=== PATIENT | female | born 1985 | race Caucasian/White ===

== ENCOUNTER 2018-05-14 16:58 | Observation (INO) | payer OTHER ==
[2018-05-14] MEDS ORDERED: Sodium Chloride 0.9% 1000 ML 1,000 ML IV STA (17:52)
--- NOTE | 2018-05-14 18:00 | ERPHSYRPT ---
- History of Present Illness Time Seen by Provider: 05/14/18 17:45 Source: patient Exam Limitations: clinical condition Patient Subjective Stated Complaint: pt reports vomiting every other day, states recently been treated for UTI, pt is , pt also reports acid reflux and abd cramping, Triage Nursing Assessment: pt is aox3, pupils perrl, afebrile, resps easy and non labored, radial pulses strong and equal, lung sounds are clear, abd is , bowel sounds present and normoactive x4, pt skin pale warm dry. Physician History: PATIENT IS A 5, PARA 3, 1, WHO IS 28 WEEKS GESTATION COMPLAINS OF EPISODES OF EMESIS EVER OTHER DAY,COMPLAINS OF FEELING WEAK, HAS POOR APPETITE AND FREQUENT REFLUX. DENIES URINARY SYMPTOMS, FEVER, VAGINAL BLEEDING. Timing/Duration: week(s) Severity: mild Associated Symptoms: nausea, heartburn, loss of appetite Allergies/Adverse Reactions: phenazopyridine [From Pyridium] Adverse Reaction (Verified 05/14/18 17:47) Home Medications: Ferrous Sulfate 325 mg [Feosol 325 mg] 325 mg PO DAILY 02/04/16 [History] Vits W-Ca,Fe,FA(<1Mg) [] 1 each PO DAILY 02/04/16 [History] Hx Tetanus, Diphtheria Vaccination/Date Given: Yes Hx Influenza Vaccination/Date Given: No Hx Pneumococcal Vaccination/Date Given: No Immunizations Up to Date: Yes - Review of Systems Constitutional: No Fever, No Chills Eyes: No Symptoms Ears, Nose, & Throat: No Symptoms Respiratory: No Symptoms, No Cough, No Dyspnea Cardiac: No Symptoms, No Chest Pain, No Edema, No Syncope Abdominal/Gastrointestinal: Appetite Changes, Other (REFLUX, ABDOMINAL CRAMPS), No Abdominal Pain, No Nausea, No Vomiting, No Diarrhea Genitourinary Symptoms: No Symptoms, No Dysuria Musculoskeletal: No Back Pain, No Neck Pain Skin: No Rash Neurological: No Dizziness, No Focal Weakness, No Sensory Changes Psychological: No Symptoms Endocrine: No Symptoms All Other Systems: Reviewed and Negative - Past Medical History Pertinent Past Medical History: Yes Other Medical History: hx of pre cancerous cells when pap done - Past Surgical History Past Surgical History: Yes Neuro Surgical History: No Pertinent History Cardiac: No Pertinent History Respiratory: No Pertinent History Gastrointestinal: No Pertinent History Genitourinary: No Pertinent History Musculoskeletal: No Pertinent History Female Surgical History: Section Other Surgical History: c/section with second - Social History Smoking Status: Current every day smoker How long have you smoked: 12 years Exposure to second hand smoke: Yes Drug Use: none Patient Lives Alone: No - Female History Hx Last Menstrual Period: 10/29/17 Hx Now: Yes Expected Date of Delivery: 08/01/17 - Nursing Vital Signs Nursing Vital Signs: Initial Vital Signs Temperature 98.4 F 05/14/18 17:27 Pulse Rate 85 05/14/18 17:27 Respiratory Rate 20 05/14/18 17:27 Blood Pressure 105/85 05/14/18 17:27 Pain Scale Pain Intensity 8 - Physical Exam General Appearance: no apparent distress (GRAVID FUNDAL HEIGHT 5FINGER BREATHS ABOVE THE UMBILICUS), alert Eye Exam: PERRL/EOMI, eyes nml inspection Ears, Nose, Throat Exam: normal ENT inspection, TMs normal, pharynx normal, moist mucous membranes Neck Exam: normal inspection, non-tender, supple, full range of motion Respiratory Exam: normal breath sounds, lungs clear, No respiratory distress Cardiovascular Exam: regular rate/rhythm, normal heart sounds, normal peripheral pulses Gastrointestinal/Abdomen Exam: soft, normal bowel sounds, No tenderness, No mass Back Exam: normal inspection, normal range of motion, No CVA tenderness, No vertebral tenderness Extremity Exam: normal inspection, normal range of motion, pelvis stable Neurologic Exam: alert, oriented x 3, cooperative, normal mood/affect, nml cerebellar function, nml station & gait, sensation nml, No motor deficits Skin Exam: normal color, warm, dry, No rash Lymphatic Exam: No adenopathy SpO2 Interpretation: normal SpO2: 98 Ordered Tests: Active Orders 24 hr Category Date Time Status Orthostatic Vital Signs STAT Care 05/14/18 17:52 Active BMP Stat Lab 05/14/18 18:02 Completed CBC W DIFF Stat Lab 05/14/18 18:02 Completed CULTURE,URINE Stat Lab 05/14/18 18:05 Received MAGNESIUM Stat Lab 05/14/18 18:02 Completed Manual Differential NC Stat Lab 05/14/18 18:02 Completed UA W/RFX UR CULTURE Stat Lab 05/14/18 18:05 Completed Medication Summary Discontinued Medications Generic Name Dose Route Start Last Admin Trade Name Freq PRN Reason Stop Dose Admin Sodium Chloride 1,000 mls @ 999 mls/hr 05/14/18 17:52 05/14/18 18:07 Sodium Chloride 0.9% 1000 Ml IV 05/14/18 18:52 999 mls/hr .Q1H1M STA Administration Sodium Chloride Confirm 05/14/18 18:02 Sodium Chloride 0.9% 1000 Ml Administered 05/14/18 18:03 Dose 1,000 mls @ ud .ROUTE .STK-MED ONE Lab/Rad Data: Laboratory Result Diagrams 05/14/18 18:02 05/14/18 18:02 Laboratory Results 05/14/18 05/14/18 05/14/18 Range/Units 18:05 18:02 18:02 WBC (4.0-10.5) K/mm3 RBC (4.1-5.4) M/mm3 Hgb (12.0-16.0) gm/dl Hct (35-47) % MCV (78-100) fl MCH (26-32) pg MCHC (32-36) g/dl RDW (11.5-14.0) % Plt Count (150-450) K/mm3 MPV (6-9.5) fl Absolute Granulocytes (1.4-6.9) Segmented Neutrophils (36.0-66.0) % Band Neutrophils (0.0-2.0) % Lymphocytes (Manual) (24-44) % Monocytes (Manual) (0.0-12.0) % Eosinophils (Manual) (0.00-3.0) % Atypical Lymphocytes % Platelet Estimate (NORMAL) RBC Morphology Sodium 135 L (137-145) mmol/L Potassium 3.6 (3.5-5.1) mmol/L Chloride 107 (98-107) mmol/L Carbon Dioxide 21 L (22-30) mmol/L Anion Gap 11.3 (5-15) MEQ/L BUN 14 (7-17) mg/dL Creatinine 0.36 L (0.52-1.04) mg/dL Estimated GFR > 60.0 ML/MIN Glucose 89 (74-106) mg/dL Calcium 8.7 (8.4-10.2) mg/dL Magnesium 1.8 (1.6-2.3) mg/dL Urine Color YELLOW (YELLOW) Urine Appearance SLIGHTLY CLOUDY (CLEAR) Urine pH 6.0 (5-6) Ur Specific [place] 1.023 (1.005-1.025) Urine Protein 30 (Negative) Urine Ketones NEGATIVE (NEGATIVE) Urine Blood NEGATIVE (0-5) Miguel/ul Urine Nitrite NEGATIVE (NEGATIVE) Urine Bilirubin NEGATIVE (NEGATIVE) Urine Urobilinogen 4 (0-1) mg/dL Ur Leukocyte Esterase SMALL (NEGATIVE) Urine WBC (Auto) 3-5 (0-5) /HPF Urine RBC (Auto) 0-2 (0-2) /HPF U Epithel Cells (Auto) FEW (FEW) /HPF Urine Bacteria (Auto) RARE (NEGATIVE) /HPF Urine Mucus (Auto) SLIGHT (NEGATIVE) /HPF Urine Culture Reflexed YES (NO) Urine Glucose NEGATIVE (NEGATIVE) mg/dL 05/14/18 Range/Units 18:02 WBC 8.9 (4.0-10.5) K/mm3 RBC 4.06 L (4.1-5.4) M/mm3 Hgb 11.8 L (12.0-16.0) gm/dl Hct 35.7 (35-47) % MCV 87.9 (78-100) fl MCH 29.0 (26-32) pg MCHC 33.1 (32-36) g/dl RDW 14.0 (11.5-14.0) % Plt Count 303 (150-450) K/mm3 MPV 8.9 (6-9.5) fl Absolute Granulocytes 6.70 (1.4-6.9) Segmented Neutrophils 67 H (36.0-66.0) % Band Neutrophils 4 H (0.0-2.0) % Lymphocytes (Manual) 19 L (24-44) % Monocytes (Manual) 4 (0.0-12.0) % Eosinophils (Manual) 2 (0.00-3.0) % Atypical Lymphocytes 4 % Platelet Estimate NORMAL (NORMAL) RBC Morphology NORMAL Sodium (137-145) mmol/L Potassium (3.5-5.1) mmol/L Chloride (98-107) mmol/L Carbon Dioxide (22-30) mmol/L Anion Gap (5-15) MEQ/L BUN (7-17) mg/dL Creatinine (0.52-1.04) mg/dL Estimated GFR ML/MIN Glucose (74-106) mg/dL Calcium (8.4-10.2) mg/dL Magnesium (1.6-2.3) mg/dL Urine Color (YELLOW) Urine Appearance (CLEAR) Urine pH (5-6) Ur Specific [place] (1.005-1.025) Urine Protein (Negative) Urine Ketones (NEGATIVE) Urine Blood (0-5) Miguel/ul Urine Nitrite (NEGATIVE) Urine Bilirubin (NEGATIVE) Urine Urobilinogen (0-1) mg/dL Ur Leukocyte Esterase (NEGATIVE) Urine WBC (Auto) (0-5) /HPF Urine RBC (Auto) (0-2) /HPF U Epithel Cells (Auto) (FEW) /HPF Urine Bacteria (Auto) (NEGATIVE) /HPF Urine Mucus (Auto) (NEGATIVE) /HPF Urine Culture Reflexed (NO) Urine Glucose (NEGATIVE) mg/dL - Progress Progress: unchanged Progress Note: 05/14/18 18:00 IV NORMAL SALINE 1 LITER/HR 05/14/18 19:03,ALL LAB TESTS REVIEWED ARE NORMAL Counseled pt/family regarding: lab results, diagnosis, need for follow-up - Departure Time of Disposition: 19:11 Departure Disposition: Home Clinical Impression: , ACUTE EMESIS Condition: Stable Critical Care Time: No Referrals: SARAH SOLOMON MD [Primary Care Provider] - Additional Instructions: GO DIRECTLY TO LABOR AND DELIVERY DEPARTMENT FOR MONITORING FOR EVALUATION OF ABDOMINAL CRAMPS. ZOFRAN 4 MG EVERY 6 HOURS NEEDED FOR NAUSEA. CONSULT YOUR PRIMARY CARE PROVIDER FOR EVALUATION EARLY THIS WEEK. Prescriptions: Ondansetron ODT 4 MG [Zofran Odt 4 mg] 4 mg PO Q6H PRN PRN #10 tab.rapdis PRN Reason: Nausea
[2018-05-14] MEDS ORDERED: Sodium Chloride 0.9% 1000 ML 1,000 ML ONE (18:02)
[2018-05-14 18:06] LABS: Hematocrit 35.7 % (35-47); Hemoglobin 11.8 gm/dl (12.0-16.0); Mean Cell Volume 87.9 fl (78-100); Mean Corpuscular Hgb Concent. 33.1 g/dl (32-36); Mean Platelet Volume 8.9 fl (6-9.5); Platelet Count 303 K/mm3 (150-450); Red Blood Count 4.06 M/mm3 (4.1-5.4); White Blood Count 8.9 K/mm3 (4.0-10.5)
[2018-05-14 18:14] LABS: Appearance SLIGHTLY CLOUDY (CLEAR); Bilirubin NEGATIVE (NEGATIVE); Blood NEGATIVE Ery/ul (0-5); Glucose NEGATIVE (NEGATIVE); Ketones NEGATIVE (NEGATIVE); Leukocyte Esterase SMALL (NEGATIVE); Nitrite NEGATIVE (NEGATIVE); Protein,Urine Dip 30 (Negative); Specific Gravity 1.023 (1.005-1.025); Urobilinogen 4 mg/dL (0-1)
[2018-05-14 18:19] LABS: ANION GAP 11.3 MEQ/L (5-15); BLOOD UREA NITROGEN 14 mg/dL (7-17); CHLORIDE 107 mmol/L (98-107); Calcium 8.7 mg/dL (8.4-10.2); Carbon Dioxide 21 mmol/L (22-30); Creatinine 1 0.36 mg/dL (0.52-1.04); Glucose 89 mg/dL (74-106); Potassium 3.6 mmol/L (3.5-5.1); SODIUM 135 mmol/L (137-145)
[2018-05-14 18:46] LABS: ATYPICAL LYMPHS 4 %; BAND 4 % (0.0-2.0); Eosinophil 2 % (0.00-3.0); Lymphocytes 19 % (24-44); Monocyte 4 % (0.0-12.0); Neutrophils 67 % (36.0-66.0); Total Cells Counted 100
[2018-05-14 18:47] LABS: Platelet Estimate NORMAL (NORMAL)
[2018-05-14 19:28] VITALS: O2SAT 99
[2018-05-14 20:18] VITALS: BP 116/72; PULSE 75
== END 2018-05-14 20:17 | disposition home or self-care (01) ==
LOC: ED 16:58 → MED SURG 19:31 → UNDOADMOB 19:31 → UNDODISOB 20:17
PROVIDERS: ADMIT Family Medicine; ATTEND Family Medicine
DX: K21.9 Gastro-esophageal reflux disease without esophagitis (principal); R10.9 Unspecified abdominal pain
CPT/HCPCS: 36415; 80048; 81001; 83735; 85025; 87086; 99284; G0378; 96360; 99285

== ENCOUNTER 2018-07-07 17:36 | Observation (INO) | payer OTHER ==
[2018-07-07 17:22] LABS: Amphetamine,Urine NEGATIVE (NEGATIVE); Barbiturate,Urine NEGATIVE (NEGATIVE); Benzodiazepine,Urine NEGATIVE (NEGATIVE); Cocaine,Urine NEGATIVE (NEGATIVE); Methadone,Urine NEGATIVE (NEGATIVE); Opiate,Urine NEGATIVE (NEGATIVE); PCP,Urine NEGATIVE (NEGATIVE); THC,Urine NEGATIVE (NEGATIVE)
[2018-07-07 17:57] VITALS: BP 134/79; PULSE 86
[2018-07-07] MEDS ORDERED: PROVENTIL 2.5 MG/3 ML NEB IH ONE (18:39)
== END 2018-07-07 17:50 | disposition home or self-care (01) ==
LOC: EDSTATUS 17:36
PROVIDERS: ADMIT Family Medicine; ATTEND Family Medicine
DX: Z34.83 Encounter for supervision of other normal pregnancy, third trimester (principal)
CPT/HCPCS: 80307; 83986; G0378; J7609; A9270-GY

== ENCOUNTER 2018-07-07 17:59 | Emergency (ER) | payer OTHER ==
[2018-07-07] MEDS ORDERED: PROVENTIL 2.5 MG/3 ML NEB IH ONE (18:26)
--- NOTE | 2018-07-07 18:34 | ERPHSYRPT ---
- History of Present Illness Time Seen by Provider: 07/07/18 18:29 Source: patient Patient Subjective Stated Complaint: cough x 4 days. congested cough. non productive.. denies fever. Triage Nursing Assessment: alert and cough. states non productive.. she is with due date August 01. denies OB symptoms.. was seen in OB prior to the ER. was cleared of OB problems. lungs clear. upper airway noises. denies fever. feels baby move as normal. Physician History: This is a 33-year-old white female 5 para 3 1 with the estimated gestational age of 36 weeks 3 days and estimated date of confinement of August 01, 2018. She arrives with complaint of a cough which has been going on for 4 days she has had some shortness of breath cough is not been nonproductive she denies any fevers no nausea no vomiting no abdominal pain. Patient was seen initially in the OB Department and she was noted to have good heart tones running in the 140s and was cleared for release to the ER for further evaluation for her cough. Past medical history includes precancerous cells with a Pap smear Past surgical history includes with her second Social history includes tobacco use. Timing/Duration: day(s) (4 days) Severity: moderate Modifying Factors: Improves With: nothing Associated Symptoms: shortness of breath, cough, other (Runny nose), No nausea, No vomiting, No abdominal pain, No heartburn, No diaphoresis, No chills, No chest pain, No fever, No headaches, No loss of appetite, No malaise, No rash, No syncope, No seizure, No weakness Allergies/Adverse Reactions: phenazopyridine [From Pyridium] Adverse Reaction (Verified 07/07/18 17:18) Home Medications: Vits W-Ca,Fe,FA(<1Mg) [] 1 each PO DAILY 02/04/16 [History] Hx Tetanus, Diphtheria Vaccination/Date Given: Yes Hx Influenza Vaccination/Date Given: No Hx Pneumococcal Vaccination/Date Given: No Immunizations Up to Date: Yes - Review of Systems Constitutional: No Fever, No Chills, No Fatigue, No Lethargy, No Malaise, No Night Sweats, No Weakness, No Weight Loss Eyes: No Symptoms, No Discharge, No Eye Pain, No Eye Redness, No Itchy, No Photophobia, No Tearing, No Vision Changes, No Double Vision, No Foreign Body Sensation Ears, Nose, & Throat: Nose Congestion, No Ear Pain, No Ear Discharge, No Hearing Changes, No Tinnitus, No Nose Pain, No Nose Discharge, No Sinus Drainage , No Epistaxis, No Mouth Pain, No Mouth Swelling, No Loose Teeth, No Throat Pain , No Throat Swelling, No Hoarse, No Painful Swallowing, No Snoring, No Stridor Respiratory: Cough, Dyspnea, No Cyanosis, No Dyspnea on Exertion ([place]), No Stridor, No Wheezing Cardiac: No Chest Pain, No Edema, No Syncope Abdominal/Gastrointestinal: No Abdominal Pain, No Nausea, No Vomiting, No Diarrhea Genitourinary Symptoms: (36 weeks3 days), No Dysuria, No Urgency, No Urinary Retention, No Flank Pain, No Menorrhagia, No Vaginal Bleeding, No Vaginal Discharge, No Vaginal Itching Musculoskeletal: No Back Pain, No Neck Pain Skin: No Rash Neurological: No Dizziness, No Focal Weakness, No Sensory Changes Psychological: No Symptoms Endocrine: No Symptoms All Other Systems: Reviewed and Negative - Past Medical History Pertinent Past Medical History: No Other Medical History: hx of pre cancerous cells when pap done - Past Surgical History Past Surgical History: Yes Neuro Surgical History: No Pertinent History Cardiac: No Pertinent History Respiratory: No Pertinent History Gastrointestinal: No Pertinent History Genitourinary: No Pertinent History Musculoskeletal: No Pertinent History Female Surgical History: Section Other Surgical History: c/section with second - Social History Smoking Status: Current every day smoker How long have you smoked: 12 years Exposure to second hand smoke: No Drug Use: none Patient Lives Alone: No - Female History Hx Now: Yes Expected Date of Delivery: 08/01/18 - Nursing Vital Signs Nursing Vital Signs: Initial Vital Signs Temperature 98.0 F 07/07/18 18:08 Pulse Rate 78 07/07/18 18:08 Respiratory Rate 18 07/07/18 18:08 Blood Pressure 127/90 07/07/18 18:08 O2 Sat by Pulse Oximetry 99 07/07/18 18:08 Pain Scale Pain Intensity 3 - Physical Exam General Appearance: mild distress, alert, other (well-developed gravid patient alert oriented 3 pleasant and cooperative to examination, frequent cough) Eye Exam: PERRL/EOMI, eyes nml inspection Ears, Nose, Throat Exam: normal ENT inspection, TMs normal, pharynx normal, moist mucous membranes Neck Exam: normal inspection, non-tender, supple, full range of motion Respiratory Exam: normal breath sounds, lungs clear, airway intact, other ( patient coughs with deep breathing.), No diminished breath sounds Cardiovascular Exam: regular rate/rhythm, normal heart sounds, normal peripheral pulses, capillary refill <2 sec Gastrointestinal/Abdomen Exam: soft, normal bowel sounds, other ( heart tones 140s per ob), No tenderness, No mass Back Exam: normal inspection, normal range of motion, No CVA tenderness, No vertebral tenderness Extremity Exam: normal inspection, normal range of motion, pelvis stable Neurologic Exam: alert, oriented x 3, cooperative, quilt sewer II-XII nml as tested, normal mood/affect, nml cerebellar function, nml station & gait, sensation nml, No motor deficits Skin Exam: normal color, warm, dry, No rash Lymphatic Exam: No adenopathy SpO2 Interpretation: normal (99%) SpO2: 99 - Course Nursing assessment & vital signs reviewed: Yes Ordered Tests: Active Orders 24 hr Category Date Time Status Respiratory Nebulizer STAT RT 07/07/18 18:26 Completed Respiratory Therapy Assessment DAILY RT 07/07/18 18:53 Active Medication Summary Discontinued Medications Generic Name Dose Route Start Last Admin Trade Name Robertq PRN Reason Stop Dose Admin Albuterol Sulfate 2.5 mg 07/07/18 18:26 07/07/18 18:51 Proventil 2.5 Mg/3 Ml Neb IH 07/07/18 18:27 2.5 mg STAT ONE Administration Amoxicillin 500 mg 07/07/18 18:51 Amoxil 500 Mg PO 07/07/18 18:52 STAT ONE Azithromycin 500 mg 07/07/18 18:53 07/07/18 18:56 Zithromax 250 Mg Tablet PO 07/07/18 18:54 500 mg STAT ONE Administration Prednisone 60 mg 07/07/18 18:50 07/07/18 18:56 Deltasone 20 Mg PO 07/07/18 18:51 60 mg STAT ONE Administration - Progress Progress: improved Progress Note: 07/07/18 18:35 This is a 33-year-old white female 5 para 3 1 who is 36-3/7 weeks estimated gestational age. She arrives with complaint of a cough for 4 days she has had a runny nose she has no fevers. She was seen in the OB department noted to have a frequent cough. She was cleared by the OB department for evaluation in the emergency room. She had heart tones of 140 she has no abdominal pain she appears to be stable. When I listen to the patient she does have some nasal discharge which is clear airway is clear she has a rather coarse cough. Lungs sound to be clear however when patient takes a deep breath she has frequent episodes of coughing. I've discussed the patient's case with Dr. Solomon the patient's family physician. Will go ahead and give patient an albuterol treatment Will plan on placing patient on tapering dose of prednisone. Will also place patient on Zithromax Z-Matthew. 07/07/18 18:47 Patient better after albuterol treatment. We'll plan on discharge. 07/07/18 18:58 Patient states she has albuterol at home. We'll tell her to use albuterol treatment every 4-6 hours as needed. - Departure Time of Disposition: 19:02 Departure Disposition: Home Clinical Impression: Bronchitis, Bronchospasm Qualifiers: Weeks of gestation: 36 weeks Qualified Code(s): Z3A.36 - 36 weeks gestation of Condition: Fair Critical Care Time: No Referrals: SARAH SOLOMON MD [Primary Care Provider] - Additional Instructions: Return home. Zithromax as prescribed. Albuterol inhaler as prescribed. Prednisone as prescribed . Plenty of fluids. Follow-up with Dr Solomon. Return for acute distress or for severe symptoms. Prescriptions: Azithromycin [Zithromax] 250 mg PO DAILY #4 tablet
[2018-07-07] MEDS ORDERED: DELTASONE 20 MG PO ONE (18:50)
[2018-07-07] MEDS ORDERED: AMOXIL 500 MG PO ONE (18:51)
[2018-07-07] MEDS ORDERED: Zithromax 250 MG TABLET PO ONE (18:53)
[2018-07-07] MEDS ORDERED: DELTASONE 20 MG ONE (18:56)
[2018-07-07] MEDS ORDERED: Zithromax 250 MG TABLET ONE (18:56)
[2018-07-07 19:32] VITALS: BP 116/88; PULSE 89; O2SAT 98
== END 2018-07-07 19:34 | disposition home or self-care (01) ==
LOC: ED 17:59
DX: J40 Bronchitis, not specified as acute or chronic (principal); J98.01 Acute bronchospasm; Z3A.36 36 weeks gestation of pregnancy
CPT/HCPCS: 94640; 99283; J7609; A9270-GY

== ENCOUNTER 2018-07-26 05:50 | Inpatient (IN) | payer OTHER ==
[2018-07-26] MEDS ORDERED: Lactated Ringers 1,000 ML IV ONE ×2 (05:53→09:43)
[2018-07-26] MEDS ORDERED: CEFAZOLIN 2 GM-D5W BAG** 2 GM/50 ML ML IV SCH (06:00)
[2018-07-26] MEDS ORDERED: Pepcid 20 MG VIAL IV SCH (06:00)
[2018-07-26] MEDS ORDERED: BICITRA 30 ML CUP PO SCH (06:00)
[2018-07-26] MEDS ORDERED: Reglan 10 MG/2 ML IV SCH (06:00)
[2018-07-26 06:26] LABS: Hematocrit 35.8 % (35-47); Hemoglobin 11.8 gm/dl (12.0-16.0); Mean Platelet Volume 9.3 fl (6-9.5); Platelet Count 326 K/mm3 (150-450); Red Blood Count 4.07 M/mm3 (4.1-5.4); White Blood Count 13.2 K/mm3 (4.0-10.5)
[2018-07-26 06:30] LABS: Mean Corpuscular Hemoglobin 28.9 pg (26-32)
[2018-07-26 06:38] LABS: INR 0.88 (0.8-3.0); PROTIME 10.2 SECONDS (9.95-12.35); PTT 26.3 SECONDS (25.3-37.0)
[2018-07-26] MEDS: Lactated Ringers 1,000 ML IV SCH ×2 (07:03→15:27)
[2018-07-26 07:17] LABS: ABO TYPING A; Antibody Screen NEGATIVE (NEGATIVE); RH TYPING POSITIVE
[2018-07-26 08:02] LABS: Appearance CLOUDY (CLEAR); Bacteria FEW /HPF (NEGATIVE); Bilirubin NEGATIVE (NEGATIVE); Blood NEGATIVE Ery/ul (0-5); Epithelial Cells RARE /HPF (FEW); Glucose NEGATIVE (NEGATIVE); Ketones NEGATIVE (NEGATIVE); Leukocyte Esterase LARGE (NEGATIVE); Mucus SLIGHT /HPF (NEGATIVE); Nitrite NEGATIVE (NEGATIVE); Protein,Urine Dip NEGATIVE (Negative); Specific Gravity 1.018 (1.005-1.025); Urobilinogen 2 mg/dL (0-1)
[2018-07-26 09:52] LABS: Appearance CLEAR (CLEAR); Bacteria RARE /HPF (NEGATIVE); Bilirubin NEGATIVE (NEGATIVE); Blood NEGATIVE Ery/ul (0-5); Epithelial Cells RARE /HPF (FEW); Glucose NEGATIVE (NEGATIVE); Ketones NEGATIVE (NEGATIVE); Leukocyte Esterase TRACE (NEGATIVE); Mucus SLIGHT /HPF (NEGATIVE); Nitrite NEGATIVE (NEGATIVE); Protein,Urine Dip NEGATIVE (Negative); RBC 0-2 /HPF (0-2); Specific Gravity 1.014 (1.005-1.025); Urobilinogen NEGATIVE mg/dL (0-1)
[2018-07-26 09:56] LABS: Amphetamine,Urine NEGATIVE (NEGATIVE); Barbiturate,Urine NEGATIVE (NEGATIVE); Benzodiazepine,Urine NEGATIVE (NEGATIVE); Cocaine,Urine NEGATIVE (NEGATIVE); Methadone,Urine NEGATIVE (NEGATIVE); PCP,Urine NEGATIVE (NEGATIVE); THC,Urine NEGATIVE (NEGATIVE)
[2018-07-26 09:59] LABS: Opiate,Urine NEGATIVE (NEGATIVE)
[2018-07-26] MEDS ORDERED: DEMEROL 50 MG IV PRN (10:00)
[2018-07-26] MEDS ORDERED: MORPHINE SULFATE 2 MG INJ IV PRN (10:00)
[2018-07-26] MEDS ORDERED: Zofran 4 MG/2 ML VIAL IV PRN (10:00)
[2018-07-26] MEDS ORDERED: CLARITIN 10 MG PO PRN (10:00)
[2018-07-26] MEDS ORDERED: HOLD NARCOTIC ANALGESICS AND SEDATIVES X24 HR MC PRN (10:00)
[2018-07-26] MEDS ORDERED: BENADRYL 50 MG/ML IV PRN (10:00)
[2018-07-26] MEDS ORDERED: Narcan 0.4 MG/ML IV PRN (10:00)
[2018-07-26] MEDS ORDERED: Nubain 10 MG/ML IV PRN (10:00)
--- NOTE | 2018-07-26 10:39 | OP ---
SURGERY DATE/TIME: 07/26/2018 0900 PREOPERATIVE DIAGNOSES: 1) History of prior section. 2) Term intrauterine . POSTOPERATIVE DIAGNOSES: 1) History of prior section. 2) Term intrauterine . PROCEDURE: Repeat low transverse section. SURGEON: Jose Lopez M.D. ESTIMATED BLOOD LOSS: 400 cc. IV FLUIDS: 1500 cc of crystalloid. URINE OUTPUT: 100 cc of clear straw-colored urine. ANESTHESIA: Spinal by Gonzalez Guzman CRNA. SPECIMENS: Umbilical cord was sent for drug screening. DESCRIPTION OF PROCEDURE: After informed written consent was obtained, the patient was taken to the operating room. She underwent spinal anesthesia and was prepped and draped in the usual sterile fashion. After adequate level of anesthesia was assessed, a low transverse skin incision was made by knife through the previous scar down to the level of the fascia which was nicked on both sides of the midline and extended in horizontal fashion using curved Candelario scissors. The superior free edge of the fascia was grasped with Maximino clamps and the underlying rectus muscles were dissected free. The same was repeated inferiorly. The peritoneal cavity was opened bluntly and extended in horizontal fashion. Bladder blade was inserted and a bladder flap was created and reflected over the lower uterine segment. Uterine incision was made in horizontal fashion. There was an area in the lower uterine segment which was extremely thin. There was a small area approximately 3 cm in diameter. Fluid was seen through this area but it was intact. Therefore the uterine incision was made superior to this area of uterine muscle. The amniotic membranes were carefully artificially ruptured and a viable male was delivered from the vertex presentation with loose nuchal x1. The cord was clamped and cut after the oropharynx and nares were bulb suctioned free. He immediately had a strong cry after delivery. Cord was clamped and cut and he was handed off to the awaiting nursery team. Next, the uterus was exteriorized and the placenta was removed manually from the uterine cavity. The uterine cavity was then sponge curetted clean with lap sponge and uterine incision was closed with #1 chromic in a running locked fashion. Good closure and good hemostasis were achieved. The area of very thin uterine muscle in the lower aspect had some bleeding after repair of the uterine incision. This area was reinforced with chromic suture and closed in a running locked fashion. Good hemostasis and good closure were achieved. The remainder of the uterine surface appeared within normal limits. The posterior cul-de-sac was wiped free of blood and clot with moist lap sponge. The uterus was returned to the peritoneal cavity. Lateral gutters were wiped free of blood and clot. Again the uterine incision was inspected and noted to be hemostatic with good closure. No other abnormalities were encountered. Next, the fascia was closed with 0 Vicryl in a running fashion good closure and good hemostasis were achieved. The subcutaneous fat was irrigated with warm, sterile saline and any areas of bleeding were cauterized with electrocautery and then the skin was closed with 4-0 undyed Vicryl in a running subcuticular fashion. Steri-Strips and occlusive dressing were placed over the incision. The patient was transferred to the recovery in good condition.
[2018-07-26] MEDS ORDERED: Ambien 10 MG PO PRN (11:00)
[2018-07-26] MEDS ORDERED: Anucort-HC SUPPOSITORY PR PRN (11:00)
[2018-07-26] MEDS ORDERED: Dulcolax 10 MG SUPP PR PRN (11:00)
[2018-07-26] MEDS ORDERED: TYLENOL EXTRA STRENGTH 500 MG PO PRN (11:00)
[2018-07-26] MEDS ORDERED: CORTISONE 1% CREAM TP PRN (11:00)
[2018-07-26] MEDS ORDERED: Naropin 0.5% 30 ML VIAL IJ ONE (13:07)
[2018-07-26] MEDS ORDERED: Zofran 4 MG/2 ML VIAL IV ONE (13:07)
[2018-07-26] MEDS ORDERED: TORAdol 30 mg Injection IJ ONE (13:07)
[2018-07-26] MEDS ORDERED: LIDOCAINE HCL 2% 100 MG/5 ML IJ ONE (13:07)
[2018-07-26] MEDS ORDERED: Decadron 4 MG INJ IV ONE (13:07)
[2018-07-26] MEDS ORDERED: Astramorph-Pf 5 MG/10 ML IJ ONE (13:23)
[2018-07-26] MEDS: Colace 100 MG PO SCH ×2 (16:00→21:43)
[2018-07-26] MEDS: FERREX 150 PO SCH (16:00)
[2018-07-26] MEDS: NICODERM CQ 14 MG TOP SCH (16:00)
[2018-07-26] MEDS: Dextrose 5%-Lr IV Solution 1000 ML 1,000 ML IV SCH ×2 (20:38→21:34)
[2018-07-26] MEDS: PERCOCET TABLET 5/325MG PO PRN (21:44)
[2018-07-27] MEDS: PERCOCET TABLET 5/325MG PO PRN (04:02)
[2018-07-27 05:25] LABS: Granulocyte Absolute (ANC) 18.79 (1.4-6.9); Hematocrit 27.1 % (35-47); Mean Cell Volume 89.1 fl (78-100); Mean Corpuscular Hemoglobin 29.6 pg (26-32); Mean Corpuscular Hgb Concent. 33.2 g/dl (32-36); Mean Platelet Volume 9.2 fl (6-9.5); Platelet Count 266 K/mm3 (150-450); Red Blood Count 3.04 M/mm3 (4.1-5.4); Red Cell Distribution Width 13.6 % (11.5-14.0); White Blood Count 23.1 K/mm3 (4.0-10.5)
[2018-07-27] MEDS ORDERED: DEMEROL 50 MG IV PRN (10:00)
[2018-07-27] MEDS ORDERED: Phenergan 25 MG INJ IM PRN (10:00)
[2018-07-27] MEDS: FERREX 150 PO SCH (10:33)
[2018-07-27] MEDS: Colace 100 MG PO SCH ×2 (10:33→21:38)
[2018-07-27] MEDS: Augmentin 500-125 Tablet PO SCH ×3 (10:33→21:38)
[2018-07-27 10:44] LABS: BAND 6 % (0.0-2.0); Lymphocytes 21 % (24-44); Monocyte 1 % (0.0-12.0); Neutrophils 72 % (36.0-66.0); Total Cells Counted 100
[2018-07-27 10:45] LABS: Platelet Estimate NORMAL (NORMAL)
[2018-07-27 11:24] VITALS: O2SAT 100
[2018-07-27] MEDS: NICODERM CQ 14 MG TOP SCH (15:28)
[2018-07-27] MEDS: NORCO 5/325 MG PO PRN ×2 (15:28→21:38)
[2018-07-27] MEDS: MOTRIN 400 MG PO PRN (18:33)
[2018-07-27] MEDS: Mylicon 80MG PO PRN (19:02)
[2018-07-28] MEDS: MOTRIN 400 MG PO PRN ×3 (00:28→11:23)
[2018-07-28] MEDS: Mylicon 80MG PO PRN ×3 (01:35→12:06)
[2018-07-28] MEDS: NORCO 5/325 MG PO PRN ×2 (03:46→08:45)
[2018-07-28 05:50] LABS: Granulocyte Absolute (ANC) 9.13 (1.4-6.9); Hematocrit 28.1 % (35-47); Hemoglobin 9.2 gm/dl (12.0-16.0); Mean Cell Volume 89.5 fl (78-100); Mean Corpuscular Hgb Concent. 32.7 g/dl (32-36); Mean Platelet Volume 9.5 fl (6-9.5); Platelet Count 259 K/mm3 (150-450); Red Blood Count 3.14 M/mm3 (4.1-5.4); Red Cell Distribution Width 14.2 % (11.5-14.0); White Blood Count 12.8 K/mm3 (4.0-10.5)
[2018-07-28 05:54] LABS: Mean Corpuscular Hemoglobin 29.2 pg (26-32)
[2018-07-28] MEDS: Augmentin 500-125 Tablet PO SCH (06:19)
[2018-07-28 07:40] LABS: BAND 2 % (0.0-2.0); Basophil 1 % (0.0-1.0); Eosinophil 1 % (0.00-3.0); Lymphocytes 18 % (24-44); Monocyte 6 % (0.0-12.0); Neutrophils 72 % (36.0-66.0); Platelet Estimate NORMAL (NORMAL); Total Cells Counted 100
--- NOTE | 2018-07-28 08:08 | PCM.DS ---
Discharge Summary Date of Admission: 07/26/18 05:50 Admitting Physician: SARAH SOLOMON Consults: Consults on Case 07/26/18 05:51 Notify Physician OF ADMISSION 07/26/18 05:53 Notify Anesthesia Provider ROUTINE Primary Care Provider: SARAH SOLOMON Allergies Allergies phenazopyridine [From Pyridium] Adverse Reaction (Verified 07/26/18 06:09) Hospital Summary - Hospital Course Hospital Course: patient had repeat at 39 weeks, doing great post-op. pain is swell controlled, she is tolerating po with mild lochia - Vitals & Intake/Output Vital Signs: Vital Signs Temperature 98.0 F 07/28/18 01:52 Pulse Rate 77 07/28/18 01:52 Respiratory Rate 18 07/28/18 01:52 Blood Pressure 154/83 07/28/18 01:52 O2 Sat by Pulse Oximetry 100 07/28/18 01:52 Intake & Output: Intake & Output 07/25/18 07/26/18 07/27/18 07/28/18 11:59 11:59 11:59 11:59 Intake Total 3800 2049 Output Total 1800 Balance 1999 2049 Weight 180 kg - Lab Result Diagrams: 07/28/18 05:38 Lab Results-Last 24 Hrs: Lab Results-Last 24 Hours 07/27/18 07/28/18 Range/Units 05:10 05:38 WBC 12.8 H (4.0-10.5) K/mm3 RBC 3.14 L (4.1-5.4) M/mm3 Hgb 9.2 L (12.0-16.0) gm/dl Hct 28.1 L (35-47) % MCV 89.5 (78-100) fl MCH 29.2 (26-32) pg MCHC 32.7 (32-36) g/dl RDW 14.2 H (11.5-14.0) % Plt Count 259 (150-450) K/mm3 MPV 9.5 (6-9.5) fl Absolute Granulocytes 9.13 H (1.4-6.9) Segmented Neutrophils 72 H 72 H (36.0-66.0) % Band Neutrophils 6 H 2 (0.0-2.0) % Lymphocytes (Manual) 21 L 18 L (24-44) % Monocytes (Manual) 1 6 (0.0-12.0) % Eosinophils (Manual) 1 (0.00-3.0) % Basophils (Manual) 1 (0.0-1.0) % Platelet Estimate NORMAL NORMAL (NORMAL) RBC Morphology NORMAL NORMAL Micro Results-Entire Visit: Microbiology 07/26/18 09:10 Urine Culture - Preliminary Urine, Void NO GROWTH TO DATE - Procedures and Test Procedures and Tests throughout Hospitalization: Therapy Orders & Screens 07/26/18 06:54 Smoking Cessation Education ONCE Comment: Diagnosis: Repeat Section Smoking Status: Current every day smoker How long have you smoked: 12 years Have you smoked in the past 12 months: Yes Approximately how many cigarettes per day: 1 ppd Do you dip or chew tobacco: No 07/26/18 09:23 Standby STAT Comment: Diagnosis: Repeat Section Discharge Exam General Appearance: no apparent distress, alert Skin Exam: normal color, warm, dry Respiratory Exam: normal breath sounds, lungs clear, No respiratory distress Cardiovascular Exam: regular rate/rhythm, normal heart sounds Gastrointestinal/Abdomen Exam: soft, other (incision clean,dry, intact and well approximated) Extremity Exam: normal inspection, normal range of motion Final Diagnosis/Problem List - Final Discharge Diagnosis/Problem (1) delivery delivered Current Visit: No Status: Acute - Discharge Disposition: Home, Self-Care Condition: Stable Prescriptions: New Hydrocodone/APAP 5-325 Tab^^^ [[place] 5-325 Tablet^^^] 1 tab PO Q6HPRN PRN # 28 tablet MDD 6 PRN Reason: Pain Continue Vits W-Ca,Fe,FA(<1Mg) [] 1 each PO DAILY Follow up with: SARAH SOLOMON MD [Primary Care Provider] - 1 Week
[2018-07-28 08:59] VITALS: BP 130/74; PULSE 68
[2018-07-28] MEDS: Colace 100 MG PO SCH (11:23)
[2018-07-28] MEDS: FERREX 150 PO SCH (11:23)
== END 2018-07-28 13:00 | disposition home or self-care (01) | DRG 788 ==
LOC: OB 05:50
PROVIDERS: ADMIT Family Medicine; ATTEND Family Medicine
PROC: 10D00Z1 Extraction of Products of Conception, Low, Open Approach (ICD-10-PCS; principal; 2018-07-26)
DX: O34.211 Maternal care for low transverse scar from previous cesarean delivery (principal); Z3A.39 39 weeks gestation of pregnancy; Z37.0 Single live birth
CPT/HCPCS: 36415; 64488; 76937; 76942; 80307; 81001; 85025; 85027; 85610; 85730; 86850; 86900; 86901; 87086; 88720; 94799; J0690; J1100; J1885; J2274; J2405; J2795; L0625; A9270-GY